=== PATIENT | male | born 1990 | race Asian ===

== ENCOUNTER → 2020-05-02 | Outpatient (CLI) | payer OTHER ==
[2020-05-02 17:07] LABS: COLLAGEN EPINEPHRINE 106 SECONDS (74-162)
[2020-05-02 17:34] LABS: INR 0.99; PROTHROMBIN TIME 13.3 SECONDS (11.8-14.0)
[2020-05-02 17:35] LABS: PARTIAL THROMBOPLASTIN TIME 30.4 SECONDS (25.0-38.4)
[2020-05-02 17:46] LABS: PLATELET COUNT, AUTOMATED 210 10^3/uL (150-450)
== END ==
LOC: M LAB 16:07
PROVIDERS: ATTEND Physical Medicine & Rehabilitation
DX: M51.26 Other intervertebral disc displacement, lumbar region (principal)